=== PATIENT | female | born 1975 | race Caucasian/White ===

== ENCOUNTER 2024-01-15 15:47 | Emergency (ER) | payer BC ==
[~2024-01-15] VITALS: Ht 175.3 cm; Wt 89.9 kg
[2024-01-15] MEDS: HYDROcodone-ACET 5/325MG TAB PO ONE (18:59)
[2024-01-15] MEDS ORDERED: IBU600T PO (19:06)
[2024-01-15 19:15] VITALS: BP 118/90; PULSE 92; RESP 16; TEMP 98.3; O2SAT 98
== END 2024-01-15 19:36 | disposition home or self-care (01) ==
LOC: ER 15:47
DX: S50.12XA Contusion of left forearm, initial encounter (principal); S50.11XA Contusion of right forearm, initial encounter; G43.909 Migraine, unspecified, not intractable, without status migrainosus; Z88.2 Allergy status to sulfonamides; V43.52XA Car driver injured in collision with other type car in traffic accident, initial encounter; Y93.I9 Activity, other involving external motion; Y92.89 Other specified places as the place of occurrence of the external cause; Y99.8 Other external cause status
CPT/HCPCS: 73090; 73110